=== PATIENT | female | born 1970 | race Caucasian/White ===

== ENCOUNTER → 2019-04-16 | Outpatient (CLI) | payer OTHER ==
--- NOTE | 2019-04-16 09:50 | REPVR ---
EXAM: CT Maxillofacial Without Contrast, Sinus EXAM DATE/TIME: 04/16/2019 8:09 AM CLINICAL HISTORY: 49 years old, female; Face pain and maxilla pain; Additional info: Chronic maxillary sinusitis TECHNIQUE: Imaging protocol: CT Maxillofacial without contrast. Focus on the sinuses. Coronal and sagittal reformatted images were created and reviewed. Radiation optimization: All CT scans at this facility use at least one of these dose optimization techniques: automated exposure control; mA and/or kV adjustment per patient size (includes targeted exams where dose is matched to clinical indication); or iterative reconstruction. COMPARISON: No relevant prior studies available. FINDINGS: Frontal sinuses: The frontal sinus is not pneumatized. Ethmoid air cells: Normal. No air-fluid levels. Sphenoid sinuses: Normal. No air-fluid levels. Maxillary sinuses: Mild mucosal thickening in the right maxillary sinus. No air-fluid levels. Orbits: Normal. Nasal cavity/Septum: Unremarkable. Soft tissues: Unremarkable. Bones/joints: Unremarkable. Other findings: The bilateral ostiomeatal units are patent. IMPRESSION: No acute findings. Electronically signed by: Kole Robledo On 04/16/2019 09:49:54 AM
== END ==
LOC: M RAD 08:01
PROVIDERS: ATTEND Otolaryngology
DX: J32.0 Chronic maxillary sinusitis (principal)

== ENCOUNTER 2019-06-24 05:39 | Day surgery (SDC) | payer OTHER ==
[~2019-06-24] VITALS: Ht 170.2 cm; Wt 86.5 kg
[~2019-06-24 05:39] MED LIST: BENA25CA4 PO; CETI10CH PO; LISI10TA4 PO; MIRE1IUD IU
[2019-06-24] MEDS ORDERED: dexameTHASONE 4 MG/ML 1ML VIAL (J1100) IV ONE (06:00)
[2019-06-24] MEDS ORDERED: LR 1,000 ML IV ONE (06:00)
[2019-06-24] MEDS ORDERED: EPINEPHrine 1MG/ML INJ 30ML MD-VIAL As Ordered ONE (06:47)
[2019-06-24] MEDS ORDERED: LIDOCAINE W/EPINEPHRINE 1% 20ML VIAL As Ordered ONE (06:47)
[2019-06-24] MEDS ORDERED: SODIUM CHLORIDE 0.9% NASAL GEL 15GM (AYR) As Ordered ONE (06:47)
[2019-06-24] MEDS ORDERED: METHYLENE BLUE 0.5% (5MG/ML) 10 ML AMP (PROVAYBLUE)(Q9968 PER 1MG) As Ordered ONE (06:47)
[2019-06-24] MEDS ORDERED: dexameTHASONE 4 MG/ML 1ML VIAL (J1100) As Ordered ONE (07:12)
[2019-06-24] MEDS ORDERED: fentaNYL 100 MCG/2 ML INJECTION (J3010) As Ordered ONE ×2 (07:12→07:52)
[2019-06-24] MEDS ORDERED: PROPOFOL 200 MG/20 ML VIAL As Ordered ONE (07:12)
[2019-06-24] MEDS ORDERED: ONDANSETRON 4MG/2ML VIAL (J2405) As Ordered ONE (07:12)
[2019-06-24] MEDS ORDERED: ROCURONIUM BROMIDE 50 MG/5 ML VIAL As Ordered ONE (07:12)
[2019-06-24] MEDS ORDERED: MIDAZOLAM INJ 2 MG/2 ML VIAL (J2250) As Ordered ONE (07:12)
[2019-06-24] MEDS ORDERED: LIDOCAINE 2% INJ 100 MG/5 ML SDV (FOR ANES.) As Ordered ONE (07:12)
[2019-06-24] MEDS ORDERED: SUGAMMADEX SODIUM 500 MG/5 ML VIAL (BRIDION) As Ordered ONE (07:52)
[2019-06-24] MEDS ORDERED: oxyCODONE 5MG TAB PO PRN (09:00)
[2019-06-24] MEDS ORDERED: fentaNYL 100 MCG/2 ML INJECTION (J3010) IV PRN (09:00)
[2019-06-24] MEDS ORDERED: LR 1,000 ML IV SCH ×2 (09:00→10:00)
--- NOTE | 2019-06-24 10:11 | RO ---
DATE OF PROCEDURE: 06/24/2019 PREOPERATIVE DIAGNOSES: 1. Deviated nasal septum. 2. Hypertrophy of the inferior nasal turbinates. POSTOPERATIVE DIAGNOSES: 1. Deviated nasal septum. 2. Hypertrophy of the inferior nasal turbinates. PROCEDURE PERFORMED: 1. Septoplasty. 2. Coblation of the left and the right inferior nasal turbinates. SURGEON: Shorty Mead MD CUPOLA REPAIRER: ANESTHESIA: INTRAOPERATIVE FINDINGS: Left inferior nasal septal spur and hypertrophy of the inferior nasal turbinates. CLINICAL PREAMBLE: This 49-year-old woman presented to the office with a history of chronic nasal congestion, worse on the left side. CT scan of the sinuses revealed evidence of left nasal septal spur and minimal mucosal disease in the right maxillary sinus. Physical examination revealed hypertrophic nasal turbinates and deviated nasal septum to the left side. Management options including the surgery listed above have been discussed. The patient understood and consented to the procedures. DESCRIPTION OF PROCEDURE/OR NARRATION: Patient was identified in preop holding and brought to the operating room in stable condition. In supine position on the operating room table, the patient received general anesthesia followed by orotracheal intubation without incident. The patient was prepped and draped in the usual fashion for the procedure. Both sides of the nasal cavity were packed using pledgets soaked in 1:1000 epinephrine. After a waiting period, the pledgets were removed. The left hemitransfixion incision was made. Mucoperichondrial and mucoperiosteal flap was developed on the left side of the nasal septum. Bony cartilaginous junction was identified and disarticulated. The deviated portion of the vomer bone and the perpendicular plate were resected using the cutting Gulshan-Juve forceps. The left nasal septal spur was successfully isolated and resected as well. The deviated portion of the maxillary crest was then isolated and resected, as well. At this time, the nasal septum returned to the midline position. The left hemitransfixion incision was then closed using #0 chromic suture. At this time, the anterior surfaces of the inferior nasal turbinates were infiltrated with 1% lidocaine with 1:100,000 epinephrine. A stab incision was made over at the anterior surface of the left inferior nasal turbinate. Using the ReFlex Coblator wand set at 4 for Coblation, three passes were made along the submucosal plane of the left inferior nasal turbinate along the inferior aspect, hugging along the nasal turbinate bone. The same procedure was then carried out to coblate the right inferior nasal turbinate in the submucosal plane as well. Then, both inferior nasal turbinates were then outfractured. The Siddiqui splints were then placed into each nasal cavity and secured anteriorly using nylon sutures. At the end of the procedure, sponge and instrument counts were correct. No complications were encountered. Estimated blood loss was 20 mL. General anesthesia was reversed, and the patient was extubated and brought to the recovery room in stable condition.
[2019-06-24 10:20] VITALS: BP 147/73
== END 2019-06-24 10:40 | disposition home or self-care (01) ==
LOC: M SDC 05:39
PROVIDERS: ATTEND Otolaryngology
DX: J34.2 Deviated nasal septum (principal); J34.3 Hypertrophy of nasal turbinates; I10 Essential (primary) hypertension; Z79.899 Other long term (current) drug therapy
CPT/HCPCS: 30520; 30802; 88300; J1100; J2250; J2405; J3010; Q9968

== ENCOUNTER → 2022-06-01 | Outpatient (CLI) | payer OTHER ==
[~2022-06-01] MED LIST changes: +LISI10TA22 PO; -LISI10TA4 PO
== END ==
LOC: M WHC 11:31
PROVIDERS: ATTEND Family Medicine
DX: Z12.31 Encounter for screening mammogram for malignant neoplasm of breast (principal)

== ENCOUNTER → 2023-06-11 | Outpatient (CLI) | payer OTHER | LOC: M WHC 07:10 | PROVIDERS: ATTEND Nurse Practitioner Primary Care | DX: Z12.31 Encounter for screening mammogram for malignant neoplasm of breast (principal) ==